=== PATIENT | female | born 1990 | race African-American/Black ===

== ENCOUNTER 2019-03-30 09:06 | Emergency (ER) | payer SELFPAY ==
[~2019-03-30] VITALS: Ht 162.6 cm; Wt 81.6 kg
[2019-03-30 09:18] VITALS: BP 117/57
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
--- NOTE | 2019-03-30 09:21 | NUR ---
PT AMBULATED TO THE BATHROOM WITH SLOW GUARDED GAIT
--- NOTE | 2019-03-30 09:38 | NUR ---
DR CAMACHO AT BEDSIDE FOR PT EVALUATION
[2019-03-30] MEDS ORDERED: ONDANSETRON 4 MG ODT PO ONE (09:45)
[2019-03-30] MEDS ORDERED: HYDROcodone/APAP 5/325 MG 1 TAB TAB PO ONE (09:45)
--- NOTE | 2019-03-30 10:12 | NUR ---
PT IS HOLDING OFF ON RADIOLOGY UNTIL SHE KNOWS SHE CAN QUALIFY FOR EMERGENCY MEDICAL. CALLED ADMITTING TO SPEAK TO PT.
--- NOTE | 2019-03-30 10:40 | NUR ---
NOTIFIED RADIOLOGY THAT THE PT IS READY AND AGREED FOR THE XRAY.
--- NOTE | 2019-03-30 10:40 | NUR ---
ADMITTING PERSONNEL TALKING TO PT AT THIS TIME. PT AGREED TO HAVE RADIOLOGY DONE.
--- NOTE | 2019-03-30 12:15 | NUR ---
DR CAMACHO AT BEDSIDE FOR PT RE EVALUATION
--- NOTE | 2019-03-30 12:15 | NUR ---
Pt report given to KEON MCGUIRE. Transfer of care at this time.
[2019-03-30 12:25] VITALS: BP 101/58
== END 2019-03-30 12:28 | disposition home or self-care (01) ==
LOC: MED 09:06
DX: M25.552 Pain in left hip (principal); Z88.8 Allergy status to other drugs, medicaments and biological substances; V89.2XXA Person injured in unspecified motor-vehicle accident, traffic, initial encounter; Y93.89 Activity, other specified; Y92.89 Other specified places as the place of occurrence of the external cause; Y99.8 Other external cause status
CPT/HCPCS: 72100; 73502; 81002; 81025; 99283; Q0162